=== PATIENT | male | born 1985 | race Caucasian/White ===

== ENCOUNTER 2019-07-02 01:48 | Emergency (ER) | payer OTHER, BC ==
[~2019-07-02] VITALS: Ht 193 cm; Wt 113.4 kg
[2019-07-02] MEDS ORDERED: NORCO 5-325 TA1 EACH PO (02:30)
[2019-07-02] MEDS ORDERED: ONDANSETRON ODT8 MG PO (02:38)
== END 2019-07-02 02:53 | disposition home or self-care (01) ==
LOC: ED 01:48
DX: S42.211A Unspecified displaced fracture of surgical neck of right humerus, initial encounter for closed fracture (principal); Z88.0 Allergy status to penicillin; W01.0XXA Fall on same level from slipping, tripping and stumbling without subsequent striking against object, initial encounter
CPT/HCPCS: 73060; 99283-25

== ENCOUNTER 2021-08-28 01:03 | Emergency (ER) | payer BC ==
[~2021-08-28] VITALS: Ht 193 cm; Wt 130.5 kg
[~2021-08-28 01:03] MED LIST: GABAPENTIN600 MG PO; NORCO 5-325 TA1 EACH PO; ONDANSETRON ODT8 MG PO; OXYCODONE HCL5 MG PO
--- NOTE | 2021-08-28 15:39 | EKG ---
[facility] [address] [facility] [place] [address] Signed Sinus rhythm with marked sinus arrhythmia Incomplete right bundle branch block Borderline ECG No previous ECGs available Confirmed by KEVIN GALLEGOS MD ([id number]) on 08/28/2021 3:39:18 PM Electronically Signed By: KEVIN GALLEGOS MD 08/28/21 1539 PATIENT NAME: LEEANNA BARAJAS NAM Electrocardiogram DATE OF : 85 PHYSICIAN: KEVIN GALLEGOS MD REPORT #: [id number] REPORT IS CONFIDENTIAL AND NOT TO BE RELEASED WITHOUT AUTHORIZATION
== END 2021-08-28 03:43 | disposition home or self-care (01) ==
LOC: ED 01:03
DX: R07.89 Other chest pain (principal); Z88.0 Allergy status to penicillin
CPT/HCPCS: 36415; 71045; 80053; 84484; 85025; 99285-25

== ENCOUNTER 2024-02-26 12:25 | Emergency (ER) | payer BC ==
[~2024-02-26] VITALS: Ht 193 cm; Wt 117.4 kg
[2024-02-26] MEDS ORDERED: DIPHTH,PERTUSS(ACELL),TET VAC 0.5 ML SYRINGE IM ONE (13:15)
[2024-02-26 14:15] VITALS: BP 131/72
== END 2024-02-26 14:15 | disposition home or self-care (01) ==
LOC: ED 12:25
DX: S61.215A Laceration without foreign body of left ring finger without damage to nail, initial encounter (principal); W26.8XXA Contact with other sharp object(s), not elsewhere classified, initial encounter; Z88.0 Allergy status to penicillin
CPT/HCPCS: 90471; 90715; 99282-25

== ENCOUNTER 2024-04-06 07:57 | Day surgery (SDC) | payer BC ==
[2024-04-05 12:15] VITALS: BP 175/89
[~2024-04-06] VITALS: Ht 193 cm; Wt 115.5 kg
[~2024-04-06 07:57] MED LIST changes: +CEFAZOLIN SODIUM 2 GM/20 ML SYR IV SCH; +IBLOOD GLUCOSE TEST STRIP 1 EA TEST VI PRN; +LACTATED RINGER'S 1,000 ML IV SCH; +LIDOCAINE HCL 1% 5 ML SDV INJ ONE; +PERCOCET 5-3251 EACH PO
[2024-04-06 08:10] VITALS: BP 132/79
[2024-04-06] MEDS ORDERED: Ropivacaine HCl 0.5% 30 ML VIAL ONE (08:47)
[2024-04-06] MEDS ORDERED: LIDOCAINE HCL 2% 5 ML SDV ONE (08:47)
[2024-04-06] MEDS ORDERED: SEVOFLURANE 250 ML BTL INH ONE (08:48)
[2024-04-06] MEDS ORDERED: MIDAZOLAM HCL 2 MG/2 ML VIAL ONE (09:09)
[2024-04-06] MEDS ORDERED: HYDROCODONE/ACETA 7.5/325 TAB PO PRN (09:45)
[2024-04-06] MEDS ORDERED: propofoL 200 MG/20 ML VIAL ONE (09:51)
[2024-04-06] MEDS ORDERED: DEXAMETHASONE SOD PHOS 4 MG/ML VIAL ONE (09:52)
[2024-04-06] MEDS ORDERED: ondansetron HCL 4 MG/2 ML VIAL ONE (09:52)
[2024-04-06] MEDS ORDERED: GLYCOPYRROLATE 1 MG/5 ML MDV ONE (09:53)
[2024-04-06] MEDS ORDERED: IBLOOD GLUCOSE TEST STRIP 1 EA TEST VI PRN (10:30)
[2024-04-06] MEDS ORDERED: HYDROmorphone HCL 1 MG/ML SYR IV PRN (10:30)
[2024-04-06] MEDS ORDERED: ondansetron HCL 4 MG/2 ML VIAL IV PRN (10:30)
[2024-04-06] MEDS ORDERED: NALOXONE HCL 0.4 MG SYR IV PRN (10:30)
[2024-04-06] MEDS ORDERED: fentaNYL citrate 50 MCG/ML SDV IV PRN (10:30)
[2024-04-06] MEDS ORDERED: PROCHLORPERAZINE EDISYLATE 10 MG/2 ML VIAL IV PRN (10:30)
[2024-04-06] MEDS ORDERED: droPERidol 5 MG/2 ML VIAL IV PRN (10:30)
[2024-04-06] MEDS ORDERED: HYDROCODON-ACE1 EA11 PO (10:42)
--- NOTE | 2024-04-06 10:57 | NUR ---
04/06/24 1057 Evon Lui 1043-PT ARRIVES TO PACU RESTING SEMI FOWLERS, PT NOT RESPONSIVE TO NOXIOUS STIMULI, VSS ON 6L VIA MASK, OPA INPLACE, REU. 1053-PT AWAKENS ON OWN, OPA REMOVED AND TITRATED TO RA, VSS, REU. PT DENIES PAIN OR NAUSEA. PT FALLS BACK TO SLEEP EASILY.
--- NOTE | 2024-04-06 11:20 | NUR ---
PT ARRIVES TO DS FROM PACU VIA STRETCHER. PT IS DROWSY, BUT RESPONSIVE TO VERBAL STIMULI AND ASKING APPROPRIATE QUESTIONS. BOOT IN PLACE, CMS INTACT, PT ABLE TO SLIGHTLY WIGGLE TOES. REPORT RECEIVED FROM ALEXIS BECERRA, FAMILY AT BEDSIDE. ICE WATER, APPLESAUCE, AND CRACKERS AT BEDSIDE. CALL LIGHT WITHIN REACH, PT AND FAMILY REPORT NO FURTHER NEEDS OR QUESTIONS AT THIS TIME.
[2024-04-06 11:21] VITALS: BP 105/68
[2024-04-06 12:24] VITALS: BP 106/71
--- NOTE | 2024-04-06 12:25 | NUR ---
IN PT ROOM FOR VS AND ASSESSMENT. NO ACUTE CHANGES FROM PREVIOUS ASSESSMENT. PT REMAINS DROWSY, BUT RESPONSIVE TO VERBAL STIMULI. PT TOLERATING SMALL SIPS OF ICE WATER WITHOUT DIFFICULTY. PT REPORTS NO PAIN, NAUSEA, DIZZINESS AT THIS TIME. VS TAKEN. CALL LIGHT WITHIN REACH, PT AND MOTHER REPORT NO FURTHER NEEDS OR QUESTIONS AT THIS TIME.
--- NOTE | 2024-04-06 12:40 | NUR ---
ANSWERED PT CALL LIGHT AT THIS TIME D/T PT STATES NEED TO URINE VOID. PT SITS AT BEDSIDE AND REPORTS NO DIZZINESS OR NAUSEA. PT TO WC VIA STAND/PIVOT D/T TOE TOUCH ONLY. PT URINE VOIDS 125 ML OF CLEAR/YELLOW URINE AT THIS TIME. PT STATES NO DIZZINESS OR NAUSEA WHEN STANDING TO URINE VOID. PT BACK TO ROOM AND GETTING DRESSED W/MOTHER'S ASSISTANCE. CALL LIGHT WITHIN REACH. PT AND PT MOTHER STATE NO FURTHER NEEDS AT THIS TIME.
--- NOTE | 2024-04-06 12:50 | NUR ---
IN PT ROOM FOR DC EDUCATION. PT AND PT MOTHER STATE VERBAL UNDERSTANDING AND NO FURTHER QUESTIONS AT THIS TIME. PT OFF OF UNIT VIA WC TO PASSENGER SIDE OF MOTHER'S VEHICLE. ALL BELONGINGS IN PT POSSESSION. ICE PACK PROVIDED. PT AND PT MOTHER STATE NO FURTHER NEEDS AT THIS TIME.
--- NOTE | 2024-04-06 14:17 | OR ---
[facility] [address], [place] [address] Signed DATE OF OPERATION: 04/06/2024 SURGEON: Linn Pride MD PREOPERATIVE DIAGNOSIS: Left ankle fracture, displaced and stable. POSTOPERATIVE DIAGNOSIS: Left ankle fracture, displaced and stable. PROCEDURE PERFORMED: Open reduction and internal fixation of left lateral malleolus. CHASER HELPER: None. ANESTHESIA: General. BLOOD LOSS: Minimal. TOURNIQUET TIME: Zero. IMPLANTS: 3.8 x 130 FibuLock with three locking screws. BRIEF HISTORY: Rocky is a 38-year-old gentleman with a displaced ankle fracture he sustained at work. This was unstable and had shifted position between the ER and our office. Risks, benefits, and alternatives of operative treatment were discussed with him. He elected to proceed. PROCEDURE IN DETAIL: Once consent was obtained, he was taken to the operating room. After adequate anesthesia he was placed on the OR bed. Left hip bump was placed. The leg was prepped and draped in a standard sterile fashion. The fibula was then carefully marked out under image intensifier guidance. The distal tip of the fibula was approached through a 1.5 cm incision. The blunt dissection was taken down to the tip of the malleolus. The Electronically Signed By: LINN PRIDE MD 04/06/24 1417 PATIENT NAME: ROCKY BARAJAS OPERATIVE REPORT DATE OF : 85 REPORT #: [id number] PHYSICIAN: LINN PRIDE MD PCP: NO PRIMARY CARE PHYSICIAN REPORT IS CONFIDENTIAL AND NOT TO BE RELEASED WITHOUT AUTHORIZATION [facility] [address], [place] [address] Signed fracture was then reduced using a percutaneous bony tenaculum. The first guide pin was then advanced from the tip of the fibula into the center of the fibula proximally. The large distal drill was then used to open up the fibula. The guide pin was exchanged for the long guidewire which was advanced up the fibula all the way. It was then reamed with 3.0 followed by 4.0 reamers. The 3.8 FibuLock was selected and was inserted from the distal fibular tip across the fracture engaging the body of the fibula proximally. It was then impacted until the distal end of the alex was below the bone. The proximal fins were then deployed. The three distal locking screws were placed through separate stab incisions. The insertion guide was then removed. Final radiographs showed good reduction and good placement of the alex and good screw lengths. The wounds were copiously irrigated with normal saline, closed with alexy and dressed with the Allevyn and an Jim wrap. He was placed back into his fracture boot. He tolerated the procedure well. All sponge, needle, and instrument counts were correct. Linn Pride MD BA/MACHELLE /[id number] Copies: ~ Electronically Signed By: LINN PRIDE MD 04/06/24 1417 PATIENT NAME: ROCKY BARAJAS OPERATIVE REPORT DATE OF : 85 REPORT #: [id number] PHYSICIAN: LINN PRIDE MD PCP: NO PRIMARY CARE PHYSICIAN REPORT IS CONFIDENTIAL AND NOT TO BE RELEASED WITHOUT AUTHORIZATION
== END 2024-04-06 12:55 | disposition home or self-care (01) ==
LOC: DS 07:57
PROVIDERS: ATTEND Specialist
PROC: 0QSK04Z Reposition Left Fibula with Internal Fixation Device, Open Approach (ICD-10-PCS; principal; 2024-04-06 12:00)
DX: S82.62XA Displaced fracture of lateral malleolus of left fibula, initial encounter for closed fracture (principal); X58.XXXA Exposure to other specified factors, initial encounter
CPT/HCPCS: 01480; 64447; 73600; C1713; C1769; J0690; J1100; J2003; J2250; J2405; J2704; J2795; J7121

== ENCOUNTER 2024-05-04 09:58 | Emergency (ER) | payer BC ==
[~2024-05-04] VITALS: Ht 193 cm; Wt 114.8 kg
[~2024-05-04 09:58] MED LIST changes: -CEFAZOLIN SODIUM 2 GM/20 ML SYR IV SCH; +HYDROCODON-ACE1 EA11 PO; -IBLOOD GLUCOSE TEST STRIP 1 EA TEST VI PRN; -LACTATED RINGER'S 1,000 ML IV SCH; -LIDOCAINE HCL 1% 5 ML SDV INJ ONE
[2024-05-04] MEDS ORDERED: ELIQUIS5 MG PO (11:54)
[2024-05-04] MEDS ORDERED: APIXABAN 5 MG TAB PO ONE (12:00)
[2024-05-04 12:05] VITALS: BP 116/74
== END 2024-05-04 12:05 | disposition home or self-care (01) ==
LOC: ED 09:58
DX: I82.452 Acute embolism and thrombosis of left peroneal vein (principal); Z88.0 Allergy status to penicillin; Z79.899 Other long term (current) drug therapy
CPT/HCPCS: 93971; 99283-25